=== PATIENT | male | born 1985 | race American Indian/Alaskan Native ===

== ENCOUNTER 2018-04-17 05:19 | Emergency (ER) | payer BC ==
[2018-04-17 05:41] VITALS: BP 115/63
[2018-04-17 05:58] LABS: Basophils # (Auto) 0.1 K/mm3 (0.0-0.1); Basophils % (Auto) 0.5 % (0.0-1.8); Eosinophils % (Auto) 0.4 % (0.0-4.3); Hematocrit 48.9 % (35.5-45.6); Hemoglobin 16.3 gm/dl (11.8-15.2); Lymphocytes # (Auto) 1.7 K/mm3 (1.2-5.4); Lymphocytes % (Auto) 16.6 % (13.4-35.0); Mean Corpuscular HGB Conc 33 % (32-34); Mean Corpuscular Volume 86 fl (84-94); Monocytes # (Auto) 1.3 K/mm3 (0.0-0.8); Monocytes % (Auto) 12.8 % (0.0-7.3); Platelet Count 265 K/mm3 (140-440); Red Blood Count 5.66 M/mm3 (3.65-5.03); Red Cell Distribution Width 14.3 % (13.2-15.2)
[2018-04-17 06:08] LABS: Alanine Aminotransferase 15 units/L (7-56); Albumin 4.8 g/dL (3.9-5); BUN/Creatinine Ratio 18; Blood Urea Nitrogen 18 mg/dL (9-20); Calcium 9.4 mg/dL (8.4-10.2); Hemolysis Index 8
[2018-04-17 07:23] LABS: Bilirubin,Urine NEG (Negative); Blood,Urine NEG (Negative); Color,Urine Yellow (Yellow); Mucus,Urine 3+ /HPF; Protein,Urine <15 mg/dL mg/dL (Negative); Urobilinogen,Urine < 2.0 mg/dL (<2.0)
[2018-04-17] MEDS ORDERED: ZOFRAN IV ONE (07:33)
[2018-04-17] MEDS ORDERED: NACL 0.9% 1000 ML 1,000 ML IV ONE (07:33)
--- NOTE | 2018-04-17 07:35 | Emergency Department Report ---
ED N/V/D HPI - General Chief complaint: Nausea/Vomiting/Diarrhea Stated complaint: VOMITTING Time Seen by Provider: 04/17/18 07:12 Source: patient Mode of arrival: Ambulatory Limitations: No Limitations - History of Present Illness Initial comments: Patient is a 31-year-old -[place] male who comes to the ER with nausea and vomiting since Monday. Patient does have a history of cyclic vomiting syndrome. He uses per rectum Phenergan and when necessary pain medicines at home. He does not have a primary care doctor at present for he has just gotten medical insurance. He denies fever. There is no diarrhea. He has been in the ER for several hours and has had no active vomiting MD complaint: nausea, vomiting -: Gradual, days(s) (3) Associated Abdominal Pain: Yes Location: epigastric Radiation: none Severity: mild Associated Symptoms: nausea/vomiting - Related Data Previous Rx's Medication Instructions Recorded Last Taken Type Ondansetron [Zofran Odt] 4 mg PO Q8HR PRN #10 tab.rapdis 04/17/18 Unknown Rx Allergies Allergy/AdvReac Type Severity Reaction Status Date / Time codeine Allergy Unknown Verified 04/17/18 05:32 ED Review of Systems ROS: Stated complaint: VOMITTING Other details as noted in HPI Comment: All other systems reviewed and negative Constitutional: denies: chills Eyes: denies: eye pain ENT: denies: ear pain Respiratory: denies: see HPI Cardiovascular: denies: dyspnea on exertion Endocrine: denies: excessive sweating Gastrointestinal: as per HPI, abdominal pain, nausea, vomiting. denies: diarrhea, constipation, hematemesis, melena, hematochezia Genitourinary: denies: urgency Musculoskeletal: denies: back pain Skin: denies: lesions Neurological: denies: headache Psychiatric: denies: anxiety Hematological/Lymphatic: denies: easy bleeding ED Past Medical Hx - Past Medical History Previous Medical History?: Yes Additional medical history: cyclic syndrome - Surgical History Past Surgical History?: Yes Additional Surgical History: exploratory - Social History Smoking Status: Current Some Day Smoker - Medications Home Medications: Home Medications Medication Instructions Recorded Confirmed Last Taken Type Ondansetron [Zofran Odt] 4 mg PO Q8HR PRN #10 tab.rapdis 04/17/18 Unknown Rx ED Physical Exam - General Limitations: No Limitations General appearance: alert, in no apparent distress - Head Head exam: Present: atraumatic - Eye Eye exam: Present: normal appearance, PERRL Pupils: Present: normal accommodation - ENT ENT exam: Present: mucous membranes moist - Neck Neck exam: Present: normal inspection - Respiratory Respiratory exam: Present: normal lung sounds bilaterally - Cardiovascular Cardiovascular Exam: Present: regular rate, normal rhythm (90 on provider exam) - GI/Abdominal GI/Abdominal exam: Present: soft, normal bowel sounds, other (no vomiting in ED). Absent: distended, tenderness, guarding, rebound, rigid, diminished bowel sounds - Rectal Rectal exam: Present: deferred - Extremities Exam Extremities exam: Present: normal inspection - Back Exam Back exam: Present: normal inspection - Neurological Exam Neurological exam: Present: alert, oriented X3 - Psychiatric Psychiatric exam: Present: normal affect, normal mood - Skin Skin exam: Present: warm, dry, intact ED Course Vital Signs 04/17/18 04/17/18 04/17/18 05:24 05:25 05:40 Temperature 97.8 F 97.8 F 97.6 F Pulse Rate 107 H 105 H 85 Respiratory 18 18 18 Rate Blood Pressure 150/82 150/82 115/63 O2 Sat by Pulse 100 100 100 Oximetry ED Medical Decision Making - Lab Data Result diagrams: 04/17/18 05:42 04/17/18 05:42 - Medical Decision Making hx cyclic vomiting on phenergan pr at home vss. non toxic ambulatory no active vomiting in er labs noted IVF and symptom relief dc home with PCP follow up --discussed follow up with patient Lab Results 04/17/18 04/17/18 04/17/18 Range/Units 05:42 05:42 07:00 WBC 10.4 (4.5-11.0) K/mm3 RBC 5.66 H (3.65-5.03) M/mm3 Hgb 16.3 H (11.8-15.2) gm/dl Hct 48.9 H (35.5-45.6) % MCV 86 (84-94) fl MCH 29 (28-32) pg MCHC 33 (32-34) % RDW 14.3 (13.2-15.2) % Plt Count 265 (140-440) K/mm3 Lymph % (Auto) 16.6 (13.4-35.0) % [place] % (Auto) 12.8 H (0.0-7.3) % Eos % (Auto) 0.4 (0.0-4.3) % Baso % (Auto) 0.5 (0.0-1.8) % Lymph # 1.7 (1.2-5.4) K/mm3 [place] # 1.3 H (0.0-0.8) K/mm3 Eos # 0.0 (0.0-0.4) K/mm3 Baso # 0.1 (0.0-0.1) K/mm3 Seg Neutrophils % 69.7 (40.0-70.0) % Seg Neutrophils # 7.2 (1.8-7.7) K/mm3 Sodium 135 L (137-145) mmol/L Potassium 3.8 (3.6-5.0) mmol/L Chloride 96.4 L (98-107) mmol/L Carbon Dioxide 22 (22-30) mmol/L Anion Gap 20 mmol/L BUN 18 (9-20) mg/dL Creatinine 1.0 (0.8-1.5) mg/dL Estimated GFR > 60 ml/min BUN/Creatinine Ratio 18 % Glucose 168 H (75-100) mg/dL Calcium 9.4 (8.4-10.2) mg/dL Total Bilirubin 0.30 (0.1-1.2) mg/dL AST 23 (5-40) units/L ALT 15 (7-56) units/L Alkaline Phosphatase 66 (35-129) units/L Total Protein 7.9 (6.3-8.2) g/dL Albumin 4.8 (3.9-5) g/dL Albumin/Globulin Ratio 1.5 % Urine Color Yellow (Yellow) Urine Turbidity Clear (Clear) Urine pH 6.0 (5.0-7.0) Ur Specific [place] 1.010 (1.003-1.030) Urine Protein <15 mg/dl (Negative) mg/dL Urine Glucose (UA) Neg (Negative) mg/dL Urine Ketones Neg (Negative) mg/dL Urine Blood Neg (Negative) Urine Nitrite Neg (Negative) Urine Bilirubin Neg (Negative) Urine Urobilinogen < 2.0 (<2.0) mg/dL Ur Leukocyte Esterase Neg (Negative) Urine WBC (Auto) 3.0 (0.0-6.0) /HPF Urine RBC (Auto) 2.0 (0.0-6.0) /HPF U Epithel Cells (Auto) < 1.0 (0-13.0) /HPF Urine Mucus 3+ /HPF - Differential Diagnosis ro electrolyte distrubance Critical care attestation.: If time is entered above; I have spent that time in minutes in the direct care of this critically ill patient, excluding procedure time. ED Disposition Clinical Impression: Cyclic vomiting syndrome Disposition: TO HOME OR SELFCARE Is pt being admited?: No Does the pt Need Aspirin: No Condition: Stable Instructions: Acute Nausea and Vomiting (ED) Additional Instructions: HYDRATE WELL WITH WATER ZOFRAN UNDER THE TONGUE FOR VOMITING FOLLOW UP WITH PCP WE DISCUSSED KIDNEY FUNCTION NORMAL TODAY SEE REFERRAL BELOW Prescriptions: Ondansetron [Zofran Odt] 4 mg PO Q8HR PRN #10 tab.rapdis PRN Reason: Vomiting Referrals: PRIMARY MD JARRETT [Primary Care Provider] - 3-5 Days [facility] [Outside] - 3-5 Days RAUL GARCES MD [Staff Physician] - 3-5 Days Forms: Work/School Release Form(ED) Time of Disposition: 08:35
== END 2018-04-17 09:11 | disposition home or self-care (01) ==
LOC: ED 05:19
DX: G43.A0 Cyclical vomiting, in migraine, not intractable (principal); F17.200 Nicotine dependence, unspecified, uncomplicated; Z88.6 Allergy status to analgesic agent
CPT/HCPCS: 36415; 80053; 81001; 85025; 96361; 96374; 99283; J2405; J7030

== ENCOUNTER 2018-04-29 18:09 | Inpatient (IN) | payer BC ==
[2018-04-29] MEDS ORDERED: NACL 0.9% 500 ML 500 ML IV ONE (18:42)
[2018-04-29 19:04] LABS: Basophils # (Auto) 0.1 K/mm3 (0.0-0.1); Basophils % (Auto) 0.5 % (0.0-1.8); Eosinophils # (Auto) 0.4 K/mm3 (0.0-0.4); Eosinophils % (Auto) 2.8 % (0.0-4.3); Hematocrit 45.3 % (35.5-45.6); Lymphocytes # (Auto) 1.1 K/mm3 (1.2-5.4); Lymphocytes % (Auto) 7.2 % (13.4-35.0); Mean Corpuscular HGB Conc 33 % (32-34); Mean Corpuscular Volume 86 fl (84-94); Monocytes # (Auto) 0.4 K/mm3 (0.0-0.8); Monocytes % (Auto) 2.4 % (0.0-7.3); Platelet Count 265 K/mm3 (140-440); Red Blood Count 5.29 M/mm3 (3.65-5.03); Red Cell Distribution Width 14.5 % (13.2-15.2)
[2018-04-29 19:07] LABS: INR 1.02 (0.87-1.13)
[2018-04-29 19:13] LABS: Alanine Aminotransferase 21 units/L (7-56); Albumin 3.8 g/dL (3.9-5); BUN/Creatinine Ratio 15; Blood Urea Nitrogen 12 mg/dL (9-20); Calcium 8.6 mg/dL (8.4-10.2); Hemolysis Index 2
--- NOTE | 2018-04-29 19:17 | XRay Report ---
FINAL REPORT EXAM: XR CHEST 1V AP HISTORY: possible Sepsis TECHNIQUE: upright single view chest PRIORS: None. FINDINGS: Cardiac and mediastinal contours are unremarkable. No focal pulmonary infiltrate is identified. No pleural fluid collection seen. Pulmonary vasculature is unremarkable. IMPRESSION: Negative single-view chest is
[2018-04-29] MEDS ORDERED: NACL 0.9% 1000 ML IV ONE (20:11)
[2018-04-29] MEDS ORDERED: TYLENOL PO ONE (20:11)
[2018-04-29] MEDS ORDERED: VANCOMYCIN 1,500 MG in NACL 0.9% 500 ML 500 ML IV ONE (20:12)
[2018-04-29] MEDS ORDERED: TORADOL IV ONE (20:20)
[2018-04-29] MEDS ORDERED: ZOFRAN IV ONE (22:41)
[2018-04-29] MEDS ORDERED: MORPHINE IV ONE (22:41)
[2018-04-29 22:52] LABS: Bilirubin,Urine NEG (Negative); Blood,Urine NEG (Negative); Color,Urine Yellow (Yellow); Mucus,Urine 3+ /HPF; Protein,Urine <15 mg/dL mg/dL (Negative)
[2018-04-29] MEDS ORDERED: BENADRYL IV ONE (23:01)
[2018-04-29] MEDS ORDERED: NACL 0.9% 1000 ML 1,000 ML IV ONE (23:02)
--- NOTE | 2018-04-30 00:34 | Emergency Department Report ---
ED Extremity Problem HPI - General Chief complaint: Extremity Problem,Nontraumatic Stated complaint: BODY PAIN/TIGHT Time Seen by Provider: 04/29/18 20:08 Source: patient Mode of arrival: Ambulatory Limitations: No Limitations - History of Present Illness Initial comments: 32-year-old male with a past medical history cyclic syndrome visits to the hospital complaining of significant myalgias that worsened since yesterday. Patient complaining of chills. He denies headache, sore throat, chest pain, shortness of breath, cough, nausea, vomiting, diarrhea, or abdominal pain. About 3-4 weeks ago patient stating the laceration to his right lateral leg which probably needed stitches. He did not seek treatment. He denies of any persistent pain or swelling to this area. No complaints of rash. Patient complains of diffuse body aches greatest in bilateral shoulders and left hip. Patient states he feels like his body is heavy he cannot move. He needs assistance standing and walking. Severity scale (0 -10): 10 - Related Data Previous Rx's Medication Instructions Recorded Last Taken Type Ondansetron [Zofran Odt] 4 mg PO Q8HR PRN #10 tab.rapdis 04/17/18 Unknown Rx Allergies Allergy/AdvReac Type Severity Reaction Status Date / Time codeine Allergy Unknown Verified 04/17/18 05:32 ED Review of Systems ROS: Stated complaint: BODY PAIN/TIGHT Other details as noted in HPI Comment: All other systems reviewed and negative ED Past Medical Hx - Past Medical History Previous Medical History?: Yes Additional medical history: cyclic vomiting syndrome - Surgical History Past Surgical History?: Yes Additional Surgical History: exploratory - Social History Smoking Status: Current Every Day Smoker Substance Use Type: None, Marijuana - Medications Home Medications: Home Medications Medication Instructions Recorded Confirmed Last Taken Type Ondansetron [Zofran Odt] 4 mg PO Q8HR PRN #10 tab.rapdis 04/17/18 Unknown Rx ED Physical Exam - General Limitations: No Limitations - Other Other exam information: General: No limitations, patient is alert in no acute distress Head exam: Atraumatic, normocephalic Eyes exam: Normal appearance, pupils equal reactive to light, extraocular movem ents intact ENT: Moist mucous membrane, normal oropharynx Neck exam: Normal inspection, full range of motion, no meningismus nontender Respiratory exam: Clear to auscultation bilateral, no wheezes, rales, crackles Cardiovascular: Normal rate and rhythm, normal heart sounds Abdomen: Soft, nondistended, and nontender, with normal bowel sounds, no rebound, or guarding Extremity: Full range of motion, tenderness to palpation of bilateral shoulders with pain with movement. Full range of motion. Pain with movement of left hip. Back: Normal Inspection, full range of motion, no tenderness Neurologic: Alert, oriented x3, cranial nerves intact, no motor or sensory deficit Psychiatric: normal affect, normal mood Skin: Healed and scabbed over her right lateral distal leg laceration without surrounding warmth, erythema, drainage, or tenderness. ED Course Vital Signs 04/29/18 04/29/18 04/29/18 18:26 20:44 20:46 Temperature 99.7 F H Pulse Rate 133 H 87 Respiratory 16 14 13 Rate Blood Pressure 160/79 126/77 Blood Pressure [Left] O2 Sat by Pulse 99 99 99 Oximetry 04/29/18 04/29/18 04/29/18 20:50 20:52 21:00 Temperature 98.7 F Pulse Rate 91 H 86 Respiratory 18 13 16 Rate Blood Pressure 119/71 Blood Pressure 139/68 [Left] O2 Sat by Pulse 100 95 Oximetry 04/29/18 04/29/18 04/29/18 21:16 21:30 21:46 Temperature Pulse Rate 100 H 90 89 Respiratory 16 19 19 Rate Blood Pressure 119/71 119/71 119/71 Blood Pressure [Left] O2 Sat by Pulse 99 99 98 Oximetry 04/29/18 04/29/18 04/29/18 22:00 22:12 22:16 Temperature Pulse Rate 87 91 H 99 H Respiratory 18 20 15 Rate Blood Pressure 124/51 119/71 124/51 Blood Pressure [Left] O2 Sat by Pulse 98 98 99 Oximetry 04/29/18 04/29/18 04/30/18 23:00 23:08 00:00 Temperature 98.3 F Pulse Rate 85 85 Respiratory 13 13 14 Rate Blood Pressure 105/57 115/55 Blood Pressure 105/57 [Left] O2 Sat by Pulse 98 99 99 Oximetry - Reevaluation(s) Reevaluation #1: 04/30/18 00:58 Patient's initial heart rate was 133 on triage. Prior to initiation of IV fluids his heart rate decreased below 100. Patient treated with Tylenol and Toradol without relief in symptoms. Patient reported allergy to codeine but not to morphine. He was given morphine 4 mg and Zofran 4 mg he became diaphoretic and complained of itching. No rash or difficulty breathing reported. Patient was then treated with Benadryl. ED Medical Decision Making - Lab Data Result diagrams: 04/29/18 18:48 04/29/18 18:48 Lab Results 04/29/18 04/29/18 04/29/18 Range/Units 18:48 18:48 18:48 WBC 15.8 H (4.5-11.0) K/mm3 RBC 5.29 H (3.65-5.03) M/mm3 Hgb 15.0 (11.8-15.2) gm/dl Hct 45.3 (35.5-45.6) % MCV 86 (84-94) fl MCH 28 (28-32) pg MCHC 33 (32-34) % RDW 14.5 (13.2-15.2) % Plt Count 265 (140-440) K/mm3 Lymph % (Auto) 7.2 L (13.4-35.0) % [place] % (Auto) 2.4 (0.0-7.3) % Eos % (Auto) 2.8 (0.0-4.3) % Baso % (Auto) 0.5 (0.0-1.8) % Lymph # 1.1 L (1.2-5.4) K/mm3 [place] # 0.4 (0.0-0.8) K/mm3 Eos # 0.4 (0.0-0.4) K/mm3 Baso # 0.1 (0.0-0.1) K/mm3 Seg Neutrophils % 87.1 H (40.0-70.0) % Seg Neutrophils # 13.8 H (1.8-7.7) K/mm3 ESR (0-20) mm/Hr PT 13.8 (12.2-14.9) Sec. INR 1.02 (0.87-1.13) VBG pH (7.320-7.420) Sodium 135 L (137-145) mmol/L Potassium 3.9 (3.6-5.0) mmol/L Chloride 98.7 (98-107) mmol/L Carbon Dioxide 23 (22-30) mmol/L Anion Gap 17 mmol/L BUN 12 (9-20) mg/dL Creatinine 0.8 (0.8-1.5) mg/dL Estimated GFR > 60 ml/min BUN/Creatinine Ratio 15 % Glucose 191 H (75-100) mg/dL Lactic Acid (0.7-2.0) mmol/L Calcium 8.6 (8.4-10.2) mg/dL Total Bilirubin 0.30 (0.1-1.2) mg/dL AST 30 (5-40) units/L ALT 21 (7-56) units/L Alkaline Phosphatase 65 (35-129) units/L Total Creatine Kinase (55-170) units/L Total Protein 7.3 (6.3-8.2) g/dL Albumin 3.8 L (3.9-5) g/dL Albumin/Globulin Ratio 1.1 % Urine Color (Yellow) Urine Turbidity (Clear) Urine pH (5.0-7.0) Ur Specific [place] (1.003-1.030) Urine Protein (Negative) mg/dL Urine Glucose (UA) (Negative) mg/dL Urine Ketones (Negative) mg/dL Urine Blood (Negative) Urine Nitrite (Negative) Urine Bilirubin (Negative) Urine Urobilinogen (<2.0) mg/dL Ur Leukocyte Esterase (Negative) Urine WBC (Auto) (0.0-6.0) /HPF Urine RBC (Auto) (0.0-6.0) /HPF U Epithel Cells (Auto) (0-13.0) /HPF Urine Mucus /HPF Influenza A (Rapid) (Negative) Influenza B (Rapid) (Negative) 04/29/18 04/29/18 04/29/18 Range/Units 18:48 18:48 20:19 WBC (4.5-11.0) K/mm3 RBC (3.65-5.03) M/mm3 Hgb (11.8-15.2) gm/dl Hct (35.5-45.6) % MCV (84-94) fl MCH (28-32) pg MCHC (32-34) % RDW (13.2-15.2) % Plt Count (140-440) K/mm3 Lymph % (Auto) (13.4-35.0) % [place] % (Auto) (0.0-7.3) % Eos % (Auto) (0.0-4.3) % Baso % (Auto) (0.0-1.8) % Lymph # (1.2-5.4) K/mm3 [place] # (0.0-0.8) K/mm3 Eos # (0.0-0.4) K/mm3 Baso # (0.0-0.1) K/mm3 Seg Neutrophils % (40.0-70.0) % Seg Neutrophils # (1.8-7.7) K/mm3 ESR (0-20) mm/Hr PT (12.2-14.9) Sec. INR (0.87-1.13) VBG pH 7.413 (7.320-7.420) Sodium (137-145) mmol/L Potassium (3.6-5.0) mmol/L Chloride (98-107) mmol/L Carbon Dioxide (22-30) mmol/L Anion Gap mmol/L BUN (9-20) mg/dL Creatinine (0.8-1.5) mg/dL Estimated GFR ml/min BUN/Creatinine Ratio % Glucose (75-100) mg/dL Lactic Acid 1.90 (0.7-2.0) mmol/L Calcium (8.4-10.2) mg/dL Total Bilirubin (0.1-1.2) mg/dL AST (5-40) units/L ALT (7-56) units/L Alkaline Phosphatase (35-129) units/L Total Creatine Kinase 611 H (55-170) units/L Total Protein (6.3-8.2) g/dL Albumin (3.9-5) g/dL Albumin/Globulin Ratio % Urine Color (Yellow) Urine Turbidity (Clear) Urine pH (5.0-7.0) Ur Specific [place] (1.003-1.030) Urine Protein (Negative) mg/dL Urine Glucose (UA) (Negative) mg/dL Urine Ketones (Negative) mg/dL Urine Blood (Negative) Urine Nitrite (Negative) Urine Bilirubin (Negative) Urine Urobilinogen (<2.0) mg/dL Ur Leukocyte Esterase (Negative) Urine WBC (Auto) (0.0-6.0) /HPF Urine RBC (Auto) (0.0-6.0) /HPF U Epithel Cells (Auto) (0-13.0) /HPF Urine Mucus /HPF Influenza A (Rapid) (Negative) Influenza B (Rapid) (Negative) 04/29/18 04/29/18 04/29/18 Range/Units 20:48 21:57 22:31 WBC (4.5-11.0) K/mm3 RBC (3.65-5.03) M/mm3 Hgb (11.8-15.2) gm/dl Hct (35.5-45.6) % MCV (84-94) fl MCH (28-32) pg MCHC (32-34) % RDW (13.2-15.2) % Plt Count (140-440) K/mm3 Lymph % (Auto) (13.4-35.0) % [place] % (Auto) (0.0-7.3) % Eos % (Auto) (0.0-4.3) % Baso % (Auto) (0.0-1.8) % Lymph # (1.2-5.4) K/mm3 [place] # (0.0-0.8) K/mm3 Eos # (0.0-0.4) K/mm3 Baso # (0.0-0.1) K/mm3 Seg Neutrophils % (40.0-70.0) % Seg Neutrophils # (1.8-7.7) K/mm3 ESR (0-20) mm/Hr PT (12.2-14.9) Sec. INR (0.87-1.13) VBG pH (7.320-7.420) Sodium (137-145) mmol/L Potassium (3.6-5.0) mmol/L Chloride (98-107) mmol/L Carbon Dioxide (22-30) mmol/L Anion Gap mmol/L BUN (9-20) mg/dL Creatinine (0.8-1.5) mg/dL Estimated GFR ml/min BUN/Creatinine Ratio % Glucose (75-100) mg/dL Lactic Acid 0.70 (0.7-2.0) mmol/L Calcium (8.4-10.2) mg/dL Total Bilirubin (0.1-1.2) mg/dL AST (5-40) units/L ALT (7-56) units/L Alkaline Phosphatase (35-129) units/L Total Creatine Kinase (55-170) units/L Total Protein (6.3-8.2) g/dL Albumin (3.9-5) g/dL Albumin/Globulin Ratio % Urine Color Yellow (Yellow) Urine Turbidity Clear (Clear) Urine pH 5.0 (5.0-7.0) Ur Specific [place] 1.024 (1.003-1.030) Urine Protein <15 mg/dl (Negative) mg/dL Urine Glucose (UA) Neg (Negative) mg/dL Urine Ketones Neg (Negative) mg/dL Urine Blood Neg (Negative) Urine Nitrite Neg (Negative) Urine Bilirubin Neg (Negative) Urine Urobilinogen 2.0 (<2.0) mg/dL Ur Leukocyte Esterase Tr (Negative) Urine WBC (Auto) 2.0 (0.0-6.0) /HPF Urine RBC (Auto) 1.0 (0.0-6.0) /HPF U Epithel Cells (Auto) < 1.0 (0-13.0) /HPF Urine Mucus 3+ /HPF Influenza A (Rapid) Negative (Negative) Influenza B (Rapid) Negative (Negative) 04/29/18 Range/Units 23:00 WBC (4.5-11.0) K/mm3 RBC (3.65-5.03) M/mm3 Hgb (11.8-15.2) gm/dl Hct (35.5-45.6) % MCV (84-94) fl MCH (28-32) pg MCHC (32-34) % RDW (13.2-15.2) % Plt Count (140-440) K/mm3 Lymph % (Auto) (13.4-35.0) % [place] % (Auto) (0.0-7.3) % Eos % (Auto) (0.0-4.3) % Baso % (Auto) (0.0-1.8) % Lymph # (1.2-5.4) K/mm3 [place] # (0.0-0.8) K/mm3 Eos # (0.0-0.4) K/mm3 Baso # (0.0-0.1) K/mm3 Seg Neutrophils % (40.0-70.0) % Seg Neutrophils # (1.8-7.7) K/mm3 ESR 3 (0-20) mm/Hr PT (12.2-14.9) Sec. INR (0.87-1.13) VBG pH (7.320-7.420) Sodium (137-145) mmol/L Potassium (3.6-5.0) mmol/L Chloride (98-107) mmol/L Carbon Dioxide (22-30) mmol/L Anion Gap mmol/L BUN (9-20) mg/dL Creatinine (0.8-1.5) mg/dL Estimated GFR ml/min BUN/Creatinine Ratio % Glucose (75-100) mg/dL Lactic Acid (0.7-2.0) mmol/L Calcium (8.4-10.2) mg/dL Total Bilirubin (0.1-1.2) mg/dL AST (5-40) units/L ALT (7-56) units/L Alkaline Phosphatase (35-129) units/L Total Creatine Kinase (55-170) units/L Total Protein (6.3-8.2) g/dL Albumin (3.9-5) g/dL Albumin/Globulin Ratio % Urine Color (Yellow) Urine Turbidity (Clear) Urine pH (5.0-7.0) Ur Specific [place] (1.003-1.030) Urine Protein (Negative) mg/dL Urine Glucose (UA) (Negative) mg/dL Urine Ketones (Negative) mg/dL Urine Blood (Negative) Urine Nitrite (Negative) Urine Bilirubin (Negative) Urine Urobilinogen (<2.0) mg/dL Ur Leukocyte Esterase (Negative) Urine WBC (Auto) (0.0-6.0) /HPF Urine RBC (Auto) (0.0-6.0) /HPF U Epithel Cells (Auto) (0-13.0) /HPF Urine Mucus /HPF Influenza A (Rapid) (Negative) Influenza B (Rapid) (Negative) - EKG Data -: EKG Interpreted by Me EKG shows normal: sinus rhythm, axis (qrs 104), QRS complexes (qrsd 99), ST-T waves (early repol) Rate: normal - Radiology Data Radiology results: report reviewed cxr: naf - Medical Decision Making I'm unclear as to why patient has significant arthralgias and body weakness. He does have a leukocytosis. No signs of sepsis or septic shock at this time. ESR is normal. UA and chest x-ray is also normal. Despite ED treatment of IV fluids and pain medicine and patient does not feel any better and therefore will be admitted for further management. - Differential Diagnosis viral syndrome, arthritis, sepsis, septic arthritis Critical Care Time: No Critical care attestation.: If time is entered above; I have spent that time in minutes in the direct care of this critically ill patient, excluding procedure time. ED Disposition Clinical Impression: Arthralgia, Leukocytosis, Intractable pain Disposition: OP ADMIT IP TO THIS HOSP Is pt being admited?: Yes Condition: Stable Time of Disposition: 01:11 (Dr Dalton/hosp)
[2018-04-30] MEDS: NACL 0.9% 1000 ML 1,000 ML IV SCH ×3 (04:27→23:57)
[2018-04-30 05:56] LABS: Creatine Kinase MB 3.1 ng/mL (0.0-4.0)
--- NOTE | 2018-04-30 09:02 | History and Physical Report ---
CHIEF COMPLAINT: Generalized joint and body pain. HISTORY OF PRESENTING ILLNESS: The patient is a 32-year-old male who states for the last few days that he has been having pain in his joints and muscles going on without any history of trauma. There is also history of associated fever with no history of chest pain, no history of shortness of breath, nausea or vomiting. The patient stated that about 3-4 weeks ago, he had laceration to his right lateral leg area, which needed stitches, but he did not seek medical treatment and feel that the wound has healed. There is no history of pain or swelling at the site of the injury. There is also no complaint of rash; however, there is history of fever. The patient's body ache is more in the shoulder area and left hip joint area and states that he feels like his body is heavy and he has some problem walking around. There is no history of chills, no history of cough. The patient presented for evaluation. PAST MEDICAL HISTORY: Pertinent for cyclic vomiting syndrome. PAST SURGICAL HISTORY: Pertinent for exploratory laparotomy. FAMILY HISTORY: Family history is noncontributory. SOCIAL HISTORY: The patient smokes cigarettes, uses marijuana and does not drink alcohol. MEDICATIONS: The patient is on Zofran sublingual 4 mg every 8 hours as needed for nausea and vomiting. ALLERGIES: THE PATIENT IS ALLERGIC TO CODEINE. REVIEW OF SYSTEMS: CONSTITUTIONAL: There is fever, but no chills, no diaphoresis. HEENT: There is no headache or sore throat. CARDIOVASCULAR SYSTEM: There is no chest pain or orthopnea. RESPIRATORY SYSTEM: There is no shortness of breath or cough. GASTROINTESTINAL SYSTEM: There is no nausea, no vomiting, no abdominal pain, diarrhea or constipation. NEUROLOGICAL SYSTEM: No numbness, no dizziness, no altered mental status. MUSCULOSKELETAL SYSTEM: Generalized body pain noted. Joint pain involving the shoulder joints and the knee joints noted. No joint swelling. DERMATOLOGICAL SYSTEM: There is no skin rash or itching. GENITOURINARY SYSTEM: There is no dysuria, hematuria or flank pain. Rest of system review is normal. PHYSICAL EXAMINATION: GENERAL: At the time of exam, the patient was found to be alert and oriented x3, not in acute distress. VITAL SIGNS: Shows temperature of 99.7 degrees Fahrenheit, pulse of 133, respiration 16, blood pressure 160/79, O2 sat of 99% on room air. HEENT: Showed pupils to be equal, round, reactive to light and accommodating. Extraocular muscles are intact. NECK: Neck is supple with no JVD or carotid bruit. CARDIOVASCULAR SYSTEM: Showed normal first and second heart sounds with no gallops or murmurs. RESPIRATORY SYSTEM: Show good air entry on both sides of the lungs with no abnormal breath sounds. GASTROINTESTINAL SYSTEM: Show abdomen to be full, soft, nontender with no organomegaly or rigidity. NEUROLOGICAL: Neuro exam shows no focal deficit. MUSCULOSKELETAL SYSTEM: Show no joint swelling or tenderness. DERMATOLOGICAL SYSTEM: Show no skin rash. GENITOURINARY SYSTEM: Showing no costovertebral angle tenderness. PERTINENT LABORATORY AND IMAGING STUDIES: The patient has CBC done with elevated white count of 15,800, normal hemoglobin, normal hematocrit with CBC differential showing elevated segmented neutrophil of 87.1%. The patient's coagulation studies were unremarkable. Chemistry shows slightly decreased sodium level of 135 with slightly elevated blood glucose level of 191 and elevated total CPK of 611. The patient's urinalysis was unremarkable. Serology for influenza A and B were negative. DIAGNOSES: 1. Polyarthralgia. 2. Leukocytosis. PLAN OF ACTION: 1. The patient will be admitted to medical floor. 2. The patient will be on IV normal saline at 125 mL an hour and will be on IV Zofran 4 mg every 8 hours for nausea and vomiting and Tylenol 650 mg by mouth every 4 hours for fever and headache. 3. The patient will be on heparin 5000 units subQ q. 12 hours for DVT prophylaxis and will have urine drug screen done. 4. patient will have CPK level mornitored. JOB# [id number] OCN/NTS MTDD
[2018-04-30] MEDS ORDERED: TYLENOL PO PRN (12:39)
[2018-04-30] MEDS ORDERED: ZOFRAN IV PRN (12:39)
[2018-04-30] MEDS: PERCOCET 5/325 PO PRN ×2 (13:49→20:31)
[2018-04-30] MEDS: HEPARIN SUB-Q SCH ×2 (13:52→22:31)
[2018-04-30 14:50] LABS: Creatine Kinase MB 2.7 ng/mL (0.0-4.0)
[2018-04-30] MEDS ORDERED: DELTASONE PO SCH (17:00)
[2018-04-30 18:15] LABS: Amphetamine Screen,Urine PRESUMPTIVE NEGATIVE; Benzodiazepines Screen,Urine PRESUMPTIVE NEGATIVE; Cocaine Screen,Urine PRESUMPTIVE NEGATIVE; Methadone Screen,Urine PRESUMPTIVE NEGATIVE; Opiate Screen,Urine PRESUMPTIVE NEGATIVE
[2018-04-30 18:28] LABS: Cannabinoid Screen,Urine PRESUMPTIVE POSITIVE
--- NOTE | 2018-04-30 21:29 | XRay Report ---
FINAL REPORT EXAM: XR SHOULDER BILAT 2+V HISTORY: shoulder pain TECHNIQUE: Frontal and Y-views right shoulder and frontal and Y-views left shoulder Comparison: None FINDINGS: There is no evidence of fracture or subluxation. The joint spaces appear to be maintained. The soft tissues are unremarkable IMPRESSION: 1. No plain film evidence of bony or soft tissue abnormality. If further imaging is required, MRI may be helpful.
[2018-04-30] MEDS: NAPROSYN PO SCH (22:34)
[2018-04-30] MEDS: COLCHICINE PO SCH (22:36)
[2018-04-30] MEDS ORDERED: MORPHINE IV ONE (23:28)
[2018-05-01 02:03] LABS: C-Reactive Protein 6.5 mg/dL (0.00-1.30); Uric Acid 2.7 mg/dL (3.5-7.6)
[2018-05-01] MEDS: PERCOCET 5/325 PO PRN ×3 (06:17→20:17)
[2018-05-01] MEDS: NACL 0.9% 1000 ML 1,000 ML IV SCH ×2 (07:50→20:06)
--- NOTE | 2018-05-01 09:24 | Progress Note ---
Assessment and Plan Assessment and plan: 32-year-old man with past medical history of cyclic vomiting, marijuana abuse. He presents with myalgias and pain in multiple joints 1 day. About 3-4 weeks prior to coming to the hospital he had a laceration on his right lateral leg he did not seek treatment, it has scabbed over now denies any persistent pain or swelling to that area. 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 cw inflammatory condition Follow-up JOVAN panel, Priyanka 1 Treating empirically with steroids, NSAIDs, colchicine and pain medications Suspect either pseudogout or an autoimmune process such as Polymyositis DVT prophylaxis with Lovenox History Interval history: Continue to complain of generalized myalgia, bilateral shoulder pain and left hip pain Review of systems Constitutional: No fevers, no malaise, no joint pains CVS: No chest pain, no orthopnea, no dyspnea on exertion, no pedal edema GI: No abdominal pain, no diarrhea, no vomiting, no constipation Respiratory: No shortness of breath, no wheezing, no coughing Hospitalist Physical - Physical exam Narrative exam: General.: Appears well, no distress, nontoxic HEENT: Moist mucous membranes, extraocular muscles intact, no lymphadenopathy Neck: supple Cardiac: S1-S2 heard Lungs: clear to auscultation bilaterally Abdomen: soft , nontender, nondistended, bowel sounds positive Extremities: no edema clubbing or cyanosis There is no joint effusion, shoulders bilaterally warm to touch, no joint tenderness Skin: no rash or lesions Neurologic: no gross focal deficits Psych: calm, and cooperative - Constitutional Vitals: Temp Pulse Resp BP Pulse Ox 98.6 F 74 12 134/61 99 04/30/18 23:51 04/30/18 23:51 04/30/18 23:51 04/30/18 23:51 04/30/18 23:51 Results - Labs CBC & Chem 7: 04/29/18 18:48 04/29/18 18:48 Labs: Laboratory Last Values WBC 15.8 K/mm3 (4.5-11.0) H 04/29/18 18:48 RBC 5.29 M/mm3 (3.65-5.03) H 04/29/18 18:48 Hgb 15.0 gm/dl (11.8-15.2) 04/29/18 18:48 Hct 45.3 % (35.5-45.6) 04/29/18 18:48 MCV 86 fl (84-94) 04/29/18 18:48 MCH 28 pg (28-32) 04/29/18 18:48 MCHC 33 % (32-34) 04/29/18 18:48 RDW 14.5 % (13.2-15.2) 04/29/18 18:48 Plt Count 265 K/mm3 (140-440) 04/29/18 18:48 Lymph % (Auto) 7.2 % (13.4-35.0) L 04/29/18 18:48 [place] % (Auto) 2.4 % (0.0-7.3) 04/29/18 18:48 Eos % (Auto) 2.8 % (0.0-4.3) 04/29/18 18:48 Baso % (Auto) 0.5 % (0.0-1.8) 04/29/18 18:48 Lymph # 1.1 K/mm3 (1.2-5.4) L 04/29/18 18:48 [place] # 0.4 K/mm3 (0.0-0.8) 04/29/18 18:48 Eos # 0.4 K/mm3 (0.0-0.4) 04/29/18 18:48 Baso # 0.1 K/mm3 (0.0-0.1) 04/29/18 18:48 Seg Neutrophils % 87.1 % (40.0-70.0) H 04/29/18 18:48 Seg Neutrophils # 13.8 K/mm3 (1.8-7.7) H 04/29/18 18:48 ESR 34 mm/Hr (0-20) 05/01/18 01:03 PT 13.8 Sec. (12.2-14.9) 04/29/18 18:48 INR 1.02 (0.87-1.13) 04/29/18 18:48 VBG pH 7.413 (7.320-7.420) 04/29/18 18:48 Sodium 135 mmol/L (137-145) L 04/29/18 18:48 Potassium 3.9 mmol/L (3.6-5.0) 04/29/18 18:48 Chloride 98.7 mmol/L (98-107) 04/29/18 18:48 Carbon Dioxide 23 mmol/L (22-30) 04/29/18 18:48 Anion Gap 17 mmol/L 04/29/18 18:48 BUN 12 mg/dL (9-20) 04/29/18 18:48 Creatinine 0.8 mg/dL (0.8-1.5) 04/29/18 18:48 Estimated GFR > 60 ml/min 04/29/18 18:48 BUN/Creatinine Ratio 15 % 04/29/18 18:48 Glucose 191 mg/dL (75-100) H 04/29/18 18:48 Lactic Acid 0.70 mmol/L (0.7-2.0) 04/29/18 21:57 Uric Acid 2.7 mg/dL (3.5-7.6) L 05/01/18 01:03 Calcium 8.6 mg/dL (8.4-10.2) 04/29/18 18:48 Total Bilirubin 0.30 mg/dL (0.1-1.2) 04/29/18 18:48 AST 30 units/L (5-40) 04/29/18 18:48 ALT 21 units/L (7-56) 04/29/18 18:48 Alkaline Phosphatase 65 units/L (35-129) 04/29/18 18:48 Total Creatine Kinase 524 units/L (55-170) H 04/30/18 13:51 CK-MB (CK-2) 2.7 ng/mL (0.0-4.0) 04/30/18 13:51 CK-MB (CK-2) Rel Index 0.5 (0-4) 04/30/18 13:51 C-Reactive Protein 6.50 mg/dL (0.00-1.30) H 05/01/18 01:03 Total Protein 7.3 g/dL (6.3-8.2) 04/29/18 18:48 Albumin 3.8 g/dL (3.9-5) L 04/29/18 18:48 Albumin/Globulin Ratio 1.1 % 04/29/18 18:48 Urine Color Yellow (Yellow) 04/29/18 22:31 Urine Turbidity Clear (Clear) 04/29/18 22:31 Urine pH 5.0 (5.0-7.0) 04/29/18 22:31 Ur Specific [place] 1.024 (1.003-1.030) 04/29/18 22:31 Urine Protein <15 mg/dl mg/dL (Negative) 04/29/18 22:31 Urine Glucose (UA) Neg mg/dL (Negative) 04/29/18 22:31 Urine Ketones Neg mg/dL (Negative) 04/29/18 22:31 Urine Blood Neg (Negative) 04/29/18 22:31 Urine Nitrite Neg (Negative) 04/29/18 22:31 Urine Bilirubin Neg (Negative) 04/29/18 22:31 Urine Urobilinogen 2.0 mg/dL (<2.0) 04/29/18 22:31 Ur Leukocyte Esterase Tr (Negative) 04/29/18 22:31 Urine WBC (Auto) 2.0 /HPF (0.0-6.0) 04/29/18 22:31 Urine RBC (Auto) 1.0 /HPF (0.0-6.0) 04/29/18 22:31 U Epithel Cells (Auto) < 1.0 /HPF (0-13.0) 04/29/18 22:31 Urine Mucus 3+ /HPF 04/29/18 22:31 Urine Opiates Screen Presumptive negative 04/30/18 17:43 Urine Methadone Screen Presumptive negative 04/30/18 17:43 Ur Barbiturates Screen Presumptive negative 04/30/18 17:43 Ur Phencyclidine Scrn Presumptive negative 04/30/18 17:43 Ur Amphetamines Screen Presumptive negative 04/30/18 17:43 U Benzodiazepines Scrn Presumptive negative 04/30/18 17:43 Urine Cocaine Screen Presumptive negative 04/30/18 17:43 U Marijuana (THC) Screen Presumptive positive 04/30/18 17:43 Drugs of Abuse Note Disclamer 04/30/18 17:43 Influenza A (Rapid) Negative (Negative) 04/29/18 20:48 Influenza B (Rapid) Negative (Negative) 04/29/18 20:48
[2018-05-01] MEDS: DELTASONE PO SCH (10:26)
[2018-05-01] MEDS: NAPROSYN PO SCH ×2 (10:26→22:11)
[2018-05-01] MEDS: COLCHICINE PO SCH (10:29)
[2018-05-01] MEDS ORDERED: LOVENOX SUB-Q SCH (22:00)
[2018-05-02] MEDS: NACL 0.9% 1000 ML 1,000 ML IV SCH ×2 (07:29→16:00)
[2018-05-02] MEDS: PERCOCET 5/325 PO PRN (10:18)
[2018-05-02] MEDS: NAPROSYN PO SCH (10:19)
[2018-05-02] MEDS: DELTASONE PO SCH (10:19)
--- NOTE | 2018-05-02 12:16 | Discharge Summary ---
Providers - Providers Date of Admission: 04/30/18 01:12 Attending physician: JORGE AWAD MD 04/30/18 04:57 Consult to Wound/ET Nurse [CONS] Routine Reason For Exam: wound eval- healing wound right leg 04/30/18 06:57 Physical Therapy Evaluation and Treat [CONS] Routine Comment: Reason For Exam: weakness with difficulty in ambulation 04/30/18 15:22 Occupational Therapy Evaluate and Treat [CONS] Routine Comment: Reason For Exam: upper extremity weakness Primary care physician: LUISA MOSER Hospitalization Condition: Stable Hospital course: 32-year-old man with past medical history of cyclic vomiting, marijuana abuse. He presents with myalgias and pain in multiple joints 1 day. About 3-4 weeks prior to coming to the hospital he had a laceration on his right lateral leg he did not seek treatment, it has scabbed over now denies any persistent pain or swelling to that area. 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 cw inflammatory condition Follow-up JOVAN panel, Priyanka 1, which are still pending Treating empirically with steroids, NSAIDs, and pain medications Suspect autoimmune process such as Polymyositis, being dc on a steroid taper, and needs to see a kitchen assistant as outpatient for Muscle bx DVT prophylaxis with Lovenox Disposition: DC-01 TO HOME OR SELFCARE Time spent for discharge: 33 mins Core Measure Documentation - Palliative Care Palliative Care/ Comfort Measures: Not Applicable - Core Measures Any of the following diagnoses?: none Exam - Constitutional Vitals: Temp Pulse Resp BP Pulse Ox 98.5 F 62 12 119/72 100 05/02/18 04:32 05/02/18 04:32 05/02/18 04:32 05/02/18 04:32 05/02/18 04:32 General appearance: Present: no acute distress, well-nourished - EENT Eyes: Present: PERRL ENT: hearing intact, clear oral mucosa - Neck Neck: Present: supple, normal ROM - Respiratory Respiratory effort: normal Respiratory: bilateral: CTA - Cardiovascular Heart Sounds: Present: S1 & S2. Absent: rub, click - Extremities Extremities: pulses symmetrical, No edema Peripheral Pulses: within normal limits - Abdominal General gastrointestinal: Present: soft, non-tender, non-distended, normal bowel sounds Male genitourinary: Present: normal - Integumentary Integumentary: Present: clear, warm, dry - Musculoskeletal Musculoskeletal: gait normal, strength equal bilaterally - Psychiatric Psychiatric: appropriate mood/affect, intact judgment & insight - Neurologic Neurologic: CNII-XII intact, moves all extremities Plan Follow up with: LUISA MOSER [Primary Care Provider] - 7 Days Forms: Work/School Release Form Prescriptions: RX: oxyCODONE /ACETAMINOPHEN [Percocet 5/325 mg] 1 tab PO Q4H PRN #30 tablet PRN Reason: Pain, Moderate (4-6) RX: predniSONE [Deltasone] 10 mg PO .TAPER #48 tab
[2018-05-02 13:09] VITALS: BP 133/81
[2018-05-03 22:01] LABS: ANA Screen, IFA Negative (Negative)
== END 2018-05-02 17:00 | disposition home or self-care (01) | DRG 558 ==
LOC: ED 18:09 → 3A 04-30 01:12
PROVIDERS: ADMIT Internal Medicine; ATTEND Internal Medicine
DX: M62.82 Rhabdomyolysis (principal); R65.10 Systemic inflammatory response syndrome (SIRS) of non-infectious origin without acute organ dysfunction; M60.9 Myositis, unspecified; M25.50 Pain in unspecified joint; F12.10 Cannabis abuse, uncomplicated; M79.81 Nontraumatic hematoma of soft tissue; D72.829 Elevated white blood cell count, unspecified; F17.210 Nicotine dependence, cigarettes, uncomplicated; Z88.5 Allergy status to narcotic agent
CPT/HCPCS: 36415; 71045; 80053; 80307; 81001; 82140; 82550; 82553; 82805; 84550; 85025; 85610; 85652; 86038; 86140; 86235; 87040; 87086; 87116; 87400; 93005; 93010; 96374; G0378; J1200; J1644; J1650; J1885; J2270; J2405; J7030; J7512